=== PATIENT | female | born 1985 | race Hispanic/Latino ===

== ENCOUNTER 2020-02-13 15:16 | Emergency (ER) | payer BC, OTHER | END 2020-02-13 15:35 | disposition home or self-care (01) | LOC: EDH 15:16 | DX: S09.90XA Unspecified injury of head, initial encounter (principal); Z98.51 Tubal ligation status; Z72.0 Tobacco use; W22.8XXA Striking against or struck by other objects, initial encounter; Y93.89 Activity, other specified; Y92.89 Other specified places as the place of occurrence of the external cause; Y99.8 Other external cause status | CPT/HCPCS: 99281 ==

== ENCOUNTER 2021-03-19 05:32 | Observation (INO) | payer OTHER ==
[2021-03-18 10:38] LABS: BASOPHILS % (AUTO) 0.9 % (0.0-5.0); EOSINOPHILS % (AUTO) 2.7 % (0.0-8.0); HEMATOCRIT 32.8 % (36-48); MEAN CORPUSCULAR HEMOGLOBIN 22.7 pg (27.0-33.0); MEAN CORPUSCULAR HGB CONC 29.3 g/dL (32.0-36.0); MEAN CORPUSCULAR VOLUME 77.7 fL (79-99); MONOCYTES % (AUTO) 7.8 % (3.0-13.0); NEUTROPHILS % (AUTO) 56.3 % (40.0-77.0); PLATELET COUNT (AUTO) 384 K/uL (130-400); RED BLOOD CELL COUNT(AUTO) 4.22 MIL/uL (4.00-5.50); WHITE BLOOD COUNT (AUTO) 7.7 K/uL (4.8-10.8)
[2021-03-18 12:59] VITALS: BP 125/70
[~2021-03-19] VITALS: Ht 165.1 cm; Wt 79.4 kg
[2021-03-19] VITALS (24 sets, daily range): BP systolic 107–165; BP diastolic 63–96
[2021-03-19] MEDS: CEFAZOLIN SODIUM 1 GM VIAL IVP SCH ×2 (05:00→08:13)
[~2021-03-19 05:32] MED LIST: LACT1CAP75 PO; MVI PO
[2021-03-19] MEDS ORDERED: LACTATED RINGERS 1000ML 1,000 ML IV ONE (07:23)
[2021-03-19] MEDS ORDERED: MIDAZOLAM HCL 1 MG/ML 2ML VIAL ONE (07:53)
[2021-03-19] MEDS ORDERED: LIDOCAINE PF 2% 5ML ABBOJECT ONE (07:54)
[2021-03-19] MEDS ORDERED: PROPOFOL 10 MG/ML 20ML VIAL IV ONE (07:54)
[2021-03-19] MEDS ORDERED: SUCCINYLCHOLINE CHLORIDE 20 MG/ML 10 ML VIAL ONE (07:54)
[2021-03-19] MEDS ORDERED: DEXAMETHASONE SOD PHOSPHATE 4 MG/ML 1ML VIAL ONE (07:54)
[2021-03-19] MEDS ORDERED: ROCURONIUM 10MG/1ML SYR 10 MG/ML ML ONE (07:54)
[2021-03-19] MEDS ORDERED: FENTANYL CITRATE PF 50 MCG/1 ML 2ML VIAL ONE ×2 (07:55→08:58)
[2021-03-19] MEDS ORDERED: NEOSTIGMINE 5MG/5ML SYR IV ONE (08:16)
[2021-03-19] MEDS ORDERED: GLYCOPYRROLATE 1 MG/5 ML SYRINGE ONE (08:16)
[2021-03-19] MEDS ORDERED: ONDANSETRON HCL 4 MG/2 ML VIAL ONE (08:16)
[2021-03-19] MEDS ORDERED: ACETAMINOPHEN-CODEINE 300/30MG TAB PO PRN (10:45)
[2021-03-19] MEDS ORDERED: ONDANSETRON HCL 4 MG/2 ML VIAL IVP PRN (10:45)
[2021-03-19] MEDS ORDERED: IBUPROFEN 600 MG TABLET PO PRN (10:45)
[2021-03-19] MEDS ORDERED: BISACODYL 10 MG SUPP.RECT RC PRN (10:45)
[2021-03-19] MEDS ORDERED: PROMETHAZINE HCL 25 MG/ML 1ML AMPULE IM PRN (10:45)
[2021-03-19] MEDS: PROMETHAZINE HCL 25 MG/ML 1ML AMPULE IM PRN ×2 (11:00→17:11)
[2021-03-19] MEDS: DEXTROSE 5 %-0.45 % NACL 1,000 ML IV PRN ×2 (11:00→18:52)
[2021-03-19] MEDS: MEPERIDINE-PF 75 MG/ML SYG IM PRN ×2 (11:00→17:11)
[2021-03-19] MEDS: DOCUSATE SODIUM 100 MG CAP PO PRN (21:36)
[2021-03-19] MEDS: SIMETHICONE 80 MG TAB.CHEW PO PRN (21:36)
[2021-03-20 03:45] VITALS: BP 141/81
[2021-03-20] MEDS: CEFAZOLIN SODIUM 1 GM VIAL IVP SCH (05:00)
[2021-03-20 05:52] LABS: MEAN CORPUSCULAR HEMOGLOBIN 23.1 pg (27.0-33.0); MEAN CORPUSCULAR HGB CONC 30.3 g/dL (32.0-36.0); MEAN CORPUSCULAR VOLUME 76.2 fL (79-99); RED BLOOD CELL COUNT(AUTO) 4.2 MIL/uL (4.00-5.50); RED CELL DISTRIBUTION WIDTH 16.2 % (11.0-15.5); WHITE BLOOD COUNT (AUTO) 17.4 K/uL (4.8-10.8)
[2021-03-20] MEDS ORDERED: IBUPROFEN 800 MG TAB PO PRN (06:15)
[2021-03-20] MEDS ORDERED: HYDROCODONE/ACETAMINOPHEN 7.5/325 MG TAB PO PRN (06:15)
[2021-03-20 07:44] VITALS: BP 146/88
[2021-03-20] MEDS: SIMETHICONE 80 MG TAB.CHEW PO PRN (09:20)
[2021-03-20] MEDS: DOCUSATE SODIUM 100 MG CAP PO PRN (09:20)
[2021-03-20 11:28] VITALS: BP 128/79
== END 2021-03-20 13:10 | disposition home or self-care (01) ==
LOC: DAH 05:32 → WSH 05:33 → DAH 05:33 → WSH 10:10
PROVIDERS: ADMIT Obstetrics & Gynecology; ATTEND Obstetrics & Gynecology
DX: D25.9 Leiomyoma of uterus, unspecified (principal); Z20.822 Contact with and (suspected) exposure to COVID-19; N92.1 Excessive and frequent menstruation with irregular cycle; K46.9 Unspecified abdominal hernia without obstruction or gangrene; D50.9 Iron deficiency anemia, unspecified; N83.209 Unspecified ovarian cyst, unspecified side; Z87.891 Personal history of nicotine dependence; Z86.32 Personal history of gestational diabetes
CPT/HCPCS: 36415 ×2; 58263; 85025; 85027; 86850; 86900; 86901; 96360; 96361 ×2; 96372; A4215; A4221; A4222; A4223; A4351; A4510; A4600; A4606; A4663; C9803; G0378 ×31; J0330; J0690; J1100; J2001; J2175 ×2; J2250; J2405; J2550 ×2; J2704; J2710; J3010 ×2; J3490; J7120; U0003